=== PATIENT | female | born 1965 | race Caucasian/White ===

== ENCOUNTER → 2016-09-10 | Day surgery (SDC) | payer BC ==
[~2016-09-10] VITALS: Ht 163.8 cm; Wt 61.3 kg
[~2016-09-10] MED LIST: ASPI81CH CHEW; ATOR1TAB18 PO; BUPIVACAINE HCL PF 0.5% 30 ML VIAL ONE; CHLORHEXIDINE GLUCONATE 2 % 1 PACK (2 CLOTHS) TOPICAL PRN; CHLORHEXIDINE GLUCONATE 4% SOLN 120 ML BTL TOPICAL SCH; FAMOTIDINE 20 MG/2 ML VIAL ONE; INSULIN HUMAN REGULAR 1,000 UNITS/10 ML VIAL ONE; INSULIN HUMAN REGULAR 1,000 UNITS/10 ML VIAL SQ PRN; KETOROLAC TROMETHAMINE 30 MG/ML (IVP) VIAL IVP ONE; LACTATED RINGER'S 1000 ML IV PRN; LISI2.5T3 PO; METOPROLOL TARTRATE 25 MG TAB PO PRN; MIDAZOLAM HCL 2 MG/2 ML VIAL ONE; MORPHINE SULFATE 4 MG/ML INJ IV PUSH PRN; NAPR220T95 PO; NOVOLOGSS SQ; ONDANSETRON HCL 4 MG/2 ML VIAL IV PRN; ONDANSETRON HCL 4 MG/2 ML VIAL IV PUSH ONE; POVIDONE IODINE 5% (ANTISEPSIS KIT) 4 APPLICATIONS EACH NARE PRN; PROPOFOL 200 MG/20 ML AMP IV ONE; PROT40TA PO; SODIUM CHLOR 0.9% 250 ML INJ 250 ML ONE; SODIUM CHLORID 0.9% 500 ML IV PRN; SODIUM CHLORIDE 0.9% FLUSH 10 ML FLUSH IV FLUSH PRN; SODIUM CHLORIDE 0.9% FLUSH 10 ML FLUSH IV FLUSH SCH; TRAM-388 PO; VANCOMYCIN 1000 MG/NS 250 ML (for <70 kg) IV SCH; VANCOMYCIN HCL 1000 MG VIAL ONE; ceFAZolin 2 GM PREMIX 50 ML IV SCH; traMADol HCL 50 MG TAB PO PRN
[2016-09-10 08:55] VITALS: BP 115/66; PULSE 79; RESP 20; TEMP 98; O2SAT 94
--- NOTE | 2016-09-10 10:30 | EKG ---
Date Performed: 09/10/2016 Time Performed: 07:52:58 PTAGE: 51 years EKG: Sinus rhythm LOW QRS VOLTAGE IN PRECORDIAL LEADS BORDERLINE ECG NO PREVIOUS TRACING DOCTOR: Saeid Mancini Interpretating Date/Time 09/10/2016 10:29:06
--- NOTE | 2016-09-10 11:48 | PD.OP ---
cc: Chucho Carranza Jr., MD Operative Report Date of Surgery: Sep 10, 2016 Preoperative Diagnosis: Right long trigger finger Postoperative Diagnosis: Same Procedure: A1 hebert release of right long trigger finger Anesthesia: LMA Surgeon: Chucho Carranza Windows Software Developer(s): Staff Resident Surgeon: None Operation and Findings: Patient was seen and evaluated preoperatively and found to have a debilitating and painful trigger finger at the right long finger, that has so far failed nonoperative treatment. Informed consent was obtained after detailed discussion of risk and benefits including bleeding, infection, injury to arteries, nerves, and blood vessels, weakness and numbness of hand, and tendon rupture. Informed consent was obtained. Patient received IV antibiotics prior to incision. Timeout procedure was performed. Operative extremity was prepped with alcohol followed by Hibiclens and draped usual sterile fashion. Local anesthesia was performed with a quarter percent Marcaine without epi. A 1 cm long vertical incision was made with the proximal palmar crease and carried by sharp dissection through the subcutaneous tissue. Blunt dissection was used to expose the flexor tendon and the proximal edge of the A1 hebert. Using a #11 knife blade, the A1 hebert was incised and released from its proximal to distal extent. The finger was then put through a full range of motion with no triggering and I could see the hyperthrophic bump on the flexor tendon appear and disappear, and there was no further triggering. The wound was irrigated copiously with normal saline and the incision closed with 4 interrupted simple sutures of 2-0 nylon. A sterile pressure dressing was placed over the hand, and the tourniquet was deflated. The patient was awakened and returned to recovery in apparently good condition. Tourniquet time was 9 minutes. POSTP-OP PLAN OF ACTIVITY Antibiotics: none Antiocoagulation: none Weight bearing status: WBAT Dressing: Do not remove until outpatient clinic visit Dispo: expected discharge TODAY home from PACU Chucho Carranza Jr., MD Sep 10, 2016 11:48
[2016-09-10 13:05] VITALS: BP 106/56; PULSE 65; RESP 16; TEMP 97.8; O2SAT 99
== END | disposition home or self-care (01) ==
LOC: HSDC 07:15
PROVIDERS: ATTEND Orthopaedic Surgery
DX: M65.331 Trigger finger, right middle finger (principal); I10 Essential (primary) hypertension; E11.9 Type 2 diabetes mellitus without complications
CPT/HCPCS: 01810; 26055; 82948; 93005; J1815; J1885; J2250; J2405; J3370; J7050

== ENCOUNTER 2017-06-24 04:27 | Inpatient (IN) | payer BC ==
[2017-06-24] VITALS (9 sets, daily range): BP systolic 88–104; BP diastolic 49–56; PULSE 91–127; RESP 19–34; TEMP 97.7–98.9; O2SAT 92–100
[~2017-06-24] VITALS: Ht 165.1 cm; Wt 69.3 kg
[~2017-06-24 04:27] MED LIST changes: +ASPI-516 CHEW; -ASPI81CH CHEW; -ATOR1TAB18 PO; +ATOR80TA45 PO; -BUPIVACAINE HCL PF 0.5% 30 ML VIAL ONE; -CHLORHEXIDINE GLUCONATE 2 % 1 PACK (2 CLOTHS) TOPICAL PRN; -CHLORHEXIDINE GLUCONATE 4% SOLN 120 ML BTL TOPICAL SCH; -FAMOTIDINE 20 MG/2 ML VIAL ONE; -INSULIN HUMAN REGULAR 1,000 UNITS/10 ML VIAL ONE; -INSULIN HUMAN REGULAR 1,000 UNITS/10 ML VIAL SQ PRN; -KETOROLAC TROMETHAMINE 30 MG/ML (IVP) VIAL IVP ONE; -LACTATED RINGER'S 1000 ML IV PRN; -METOPROLOL TARTRATE 25 MG TAB PO PRN; -MIDAZOLAM HCL 2 MG/2 ML VIAL ONE; -MORPHINE SULFATE 4 MG/ML INJ IV PUSH PRN; -ONDANSETRON HCL 4 MG/2 ML VIAL IV PRN; -ONDANSETRON HCL 4 MG/2 ML VIAL IV PUSH ONE; -POVIDONE IODINE 5% (ANTISEPSIS KIT) 4 APPLICATIONS EACH NARE PRN; -PROPOFOL 200 MG/20 ML AMP IV ONE; -SODIUM CHLOR 0.9% 250 ML INJ 250 ML ONE; -SODIUM CHLORID 0.9% 500 ML IV PRN; -SODIUM CHLORIDE 0.9% FLUSH 10 ML FLUSH IV FLUSH PRN; -SODIUM CHLORIDE 0.9% FLUSH 10 ML FLUSH IV FLUSH SCH; -VANCOMYCIN 1000 MG/NS 250 ML (for <70 kg) IV SCH; -VANCOMYCIN HCL 1000 MG VIAL ONE; -ceFAZolin 2 GM PREMIX 50 ML IV SCH; -traMADol HCL 50 MG TAB PO PRN
[2017-06-24] MEDS ORDERED: SODIUM CHLOR 0.9% 1000 ML INJ 1,000 ML IV ONE ×2 (04:36→05:06)
--- NOTE | 2017-06-24 04:40 | PD ---
HPI Chief Complaint: Diabetic Time Seen by Provider: 04:36 Travel History International Travel<30 days: No Contact w/Intl Traveler<30days: No Traveled to known affect area: No History of Present Illness HPI 52 year old female with insulin-dependent diabetes presents to the emergency department from home by EMS transport for complaint of uncontrolled blood sugar nausea vomiting abdominal pain and identified to have his normal respirations. Patient was initiated IV fluids by EMS. Accu-Chek was read as high this was also noted upon arrival to the ED. Patient continues to complain of nausea without vomiting here. After persistent vomiting developed abdominal pain. No fevers no chills but has had respiratory illness and is worried that she has the flu. There is been no hematemesis coffee-ground emesis and no melena or hematochezia. No reported fever. No known dietary indiscretion well water ingestion or foreign travel. Patient is wearing insulin pump. PFSH Past Medical History Narrative Medical Diabetes hypertension; nursing notes reviewed Diabetes: Yes Social History Tobacco Use: No Allergies-Medications (Allergen,Severity, Reaction): Coded Allergies: penicillin G (Verified Allergy, Unknown, "It feels painful.", 06/24/17) Reported Meds & Prescriptions Reported Meds & Active Scripts Active Tramadol-Acetaminophen 37.5-325 mg Tab 1 Tab PO Q4H PRN Reported Novolog Inj (Insulin Aspart) 100 Unit/Ml Inj 0.5 Units SQ Q1HR Aspirin 81 Mg Chew 81 Mg CHEW DAILY Lisinopril 2.5 Mg Tab 2.5 Mg PO DAILY Protonix (Pantoprazole Sodium) 40 Mg Tab 40 Mg PO DAILY Atorvastatin (Atorvastatin Calcium) 80 Mg Tab 80 Mg PO HS Review of Systems Except as stated in HPI: all other systems reviewed are Neg Physical Exam Narrative GENERAL: Well-developed ill-appearing dehydrated appearing female with Kussmaul respirations. SKIN: Warm and dry. HEAD: Normocephalic. EYES: No scleral icterus. No injection or drainage. NECK: Supple, trachea midline. No JVD or lymphadenopathy. CARDIOVASCULAR: Regular rate and rhythm without murmurs, gallops, or rubs. RESPIRATORY: Breath sounds equal bilaterally. No accessory muscle use. GASTROINTESTINAL: Abdomen soft, non-tender, nondistended. MUSCULOSKELETAL: No cyanosis, or edema. BACK: Nontender without obvious deformity. No CVA tenderness. Data Data Last Documented VS Vital Signs Date Time Temp Pulse Resp B/P (MAP) Pulse Ox O2 Delivery O2 Flow Rate FiO2 06/24/17 06:05 107 32 97/56 (70) 99 Room Air 06/24/17 04:59 21 06/24/17 04:32 97.8 Orders Orders Electrocardiogram (06/24/17 04:36) Complete Blood Count With Diff (06/24/17 04:36) Comprehensive Metabolic Panel (06/24/17 04:36) Magnesium (Mg) (06/24/17 04:36) Beta Hydroxybutyrate (Acetone) (06/24/17 04:36) Lactic Acid (06/24/17 04:36) Urinalysis - C+S If Indicated (06/24/17 04:36) Blood Culture (06/24/17 04:36) Chest, Single Ap (06/24/17 04:36) Blood Gas Venous (Vbg) (06/24/17 04:36) Blood Glucose (06/24/17 04:36) Blood Glucose (06/24/17 05:36) Ecg Monitoring (06/24/17 04:36) Iv Access Insert/Monitor (06/24/17 04:36) Oximetry (06/24/17 04:36) NPO (06/24/17 04:36) Sodium Chlor 0.9% 1000 Ml Inj (Ns 1000 M (06/24/17 04:36) Sodium Chlor 0.9% 1000 Ml Inj (Ns 1000 M (06/24/17 05:06) Sodium Chloride 0.9% Flush (Ns Flush) (06/24/17 04:45) Troponin I (06/24/17 04:36) Lipase (06/24/17 04:36) Insulin Human Regular Inj (Novolin R Inj (06/24/17 04:45) Utility Porter / Telemetry CHAPARRO.Q8H (06/24/17 05:14) ^ Insert Iv (06/24/17 05:14) Diet Npo (06/24/17 Breakfast) Sodium Chlor 0.9% 1000 Ml Inj (Ns 1000 M (06/24/17 05:14) Dext 5%-Nacl 0.9% 1000 Ml Inj (D5w-Ns 10 (06/24/17 05:14) Insulin Regular (Iv Infusion) (Novolin R (06/24/17 05:15) Potassium Chlor 40 Meq Premix (Kcl 40 Me (06/24/17 05:15) Potassium Chlor 40 Meq Premix (Kcl 40 Me (06/24/17 05:15) Potassium Chlor 20 Meq Premix (Kcl 20 Me (06/24/17 05:15) Potassium Chlor 20 Meq Premix (Kcl 20 Me (06/24/17 05:15) Potassium Chlor 20 Meq Premix (Kcl 20 Me (06/24/17 05:15) Potassium Chlor 20 Meq Premix (Kcl 20 Me (06/24/17 05:15) Potassium Chlor 20 Meq Premix (Kcl 20 Me (06/24/17 05:15) Potassium Chlor 20 Meq Premix (Kcl 20 Me (06/24/17 05:15) Sodium Bicarbonate 8.4% Inj (Sodium Bica (06/24/17 05:15) Sodium Bicarbonate 8.4% Inj (Sodium Bica (06/24/17 05:15) Sodium Phosphate Inj (Sodium Phosphate I (06/24/17 05:15) Hemoglobin (Hgb) A1c (06/24/17 05:14) Basic Metabolic Panel (Bmp) (06/24/17 10:14) Basic Metabolic Panel (Bmp) (06/24/17 16:14) Basic Metabolic Panel (Bmp) (06/24/17 22:14) Basic Metabolic Panel (Bmp) (06/25/17 04:14) Magnesium (Mg) (06/24/17 10:14) Magnesium (Mg) (06/24/17 16:14) Magnesium (Mg) (06/24/17 22:14) Magnesium (Mg) (06/25/17 04:14) Phosphorus (Po4) (06/24/17 10:14) Phosphorus (Po4) (06/24/17 16:14) Phosphorus (Po4) (06/24/17 22:14) Phosphorus (Po4) (06/25/17 04:14) Beta Hydroxybutyrate (Acetone) (06/24/17 16:14) Beta Hydroxybutyrate (Acetone) (06/25/17 04:14) Ondansetron Inj (Zofran Inj) (06/24/17 05:30) Ondansetron Inj (Zofran Inj) (06/24/17 05:45) Admit Order (Ed Use Only) (06/24/17 ) Utility Porter / Telemetry CHAPARRO.Q8H (06/24/17 06:11) Activity Bed Rest (06/24/17 06:11) Notify Dr: Other (06/24/17 06:11) Influenzae A/B Antigen (06/24/17 06:13) Labs Laboratory Tests Test 06/24/17 04:43 06/24/17 04:50 Blood Gas Puncture Site IV Blood Gas Patient Temperature 98.6 Venous Blood pH 7.12 Venous Blood Partial Pressure CO2 18 mmHg Venous Blood Partial Pressure O2 53 mmHg Venous Blood HCO3 6 mmol/L Venous Blood Oxygen Saturation 76 % Venous Blood Oxygen Content 13.3 Vol % Venous Blood Base Excess -22.0 mmol/L Blood Gas Inspired Oxygen 21 % White Blood Count 19.0 TH/MM3 Red Blood Count 3.76 MIL/MM3 Hemoglobin 12.8 GM/DL Hematocrit 41.3 % Mean Corpuscular Volume 109.9 FL Mean Corpuscular Hemoglobin 34.0 PG Mean Corpuscular Hemoglobin Concent 31.0 % Red Cell Distribution Width 14.5 % Platelet Count 194 TH/MM3 Mean Platelet Volume 10.7 FL Neutrophils (%) (Auto) 85.2 % Lymphocytes (%) (Auto) 5.1 % Monocytes (%) (Auto) 9.7 % Eosinophils (%) (Auto) 0.0 % Basophils (%) (Auto) 0.0 % Neutrophils # (Auto) 16.2 TH/MM3 Lymphocytes # (Auto) 1.0 TH/MM3 Monocytes # (Auto) 1.8 TH/MM3 Eosinophils # (Auto) 0.0 TH/MM3 Basophils # (Auto) 0.0 TH/MM3 CBC Comment DIFF FINAL Differential Comment Blood Urea Nitrogen 46 MG/DL Creatinine 2.43 MG/DL Random Glucose 1018 MG/DL Total Protein 6.5 GM/DL Albumin 3.6 GM/DL Calcium Level 8.4 MG/DL Magnesium Level 2.2 MG/DL Alkaline Phosphatase 104 U/L Aspartate Amino Transf (AST/SGOT) 29 U/L Alanine Aminotransferase (ALT/SGPT) 36 U/L Total Bilirubin 0.5 MG/DL Sodium Level 129 MEQ/L Potassium Level 5.1 MEQ/L Chloride Level 87 MEQ/L Carbon Dioxide Level 6.9 MEQ/L Anion Gap 35 MEQ/L Estimat Glomerular Filtration Rate 21 ML/MIN Lactic Acid Level 8.0 mmol/L Troponin I 0.51 NG/ML Lipase 102 U/L B-Hydroxybutyrate 13.00 MMOL/L MDM Medical Decision Making Medical Screen Exam Complete: Yes Emergency Medical Condition: Yes Medical Record Reviewed: Yes Interpretation(s) Vital Signs Date Time Temp Pulse Resp B/P (MAP) Pulse Ox O2 Delivery O2 Flow Rate FiO2 06/24/17 06:05 107 32 97/56 (70) 99 Room Air 06/24/17 05:00 98 32 96/49 (65) 98 Room Air 06/24/17 04:59 99 21 06/24/17 04:32 97.8 101 34 93/56 (68) 100 Last Impressions Chest X-Ray 06/24/17 0436 Signed Impressions: Service Date/Time: Saturday, June 24, 2017 04:54 - CONCLUSION: No acute disease. Christiano Crespo MD VBG: Room air: PH 7.12 PCO2 18 bicarbonate 5.7 base excess -22 EKG: sinus rhythm QS septally age-indeterminate Influenza a/b ag: negative CBC & BMP Diagram 06/24/17 04:50 Total Protein 6.5, Albumin 3.6, Calcium Level 8.4 L, Magnesium Level 2.2, Alkaline Phosphatase 104, Aspartate Amino Transf (AST/SGOT) 29, Alanine Aminotransferase (ALT/SGPT) 36, Total Bilirubin 0.5 Differential Diagnosis DKA, hyperglycemia, electrolyte disturbance, dehydration Narrative Course Patient placed on navy senior officer IV access obtained 2 L normal saline hung for hydration patient given regular insulin 8 units IV; venous blood gas ordered Venous plexus pH is 7.12 patient's in DKA protocols initiated Critical Care Narrative Aggregate critical care time was 30 minutes. Time to perform other separately billable procedures was not included in the critical care time. My time did not include minutes spent treating any other patients simultaneously or on activities that did not directly contribute to the patient's treatment. The services I provided to this patient were to treat and/or prevent clinically significant deterioration that could result in: metabolic encephalopathy, septic shock, arrhythmia, I provided critical care services requiring my management, as noted below: Chart data review, documentation time, medication orders and management, vital sign assessments/reviewing monitor data, ordering and reviewing lab tests, ordering and interpreting/reviewing x-rays and diagnostic studies, care of the patient and discussion of the patient with the admitting physicians. Physician Communication Physician Communication all placed to intensiviat Diagnosis Primary Impression: DKA (diabetic ketoacidoses) Qualified Codes: E10.10 - Type 1 diabetes mellitus with ketoacidosis without coma Additional Impression: Elevated troponin I level Admitting Information Admitting Physician Requests: Admit Estefany Smith MD Jun 24, 2017 04:40
[2017-06-24] MEDS ORDERED: INSULIN HUMAN REGULAR 1,000 UNITS/10 ML VIAL IV PUSH ONE (04:45)
[2017-06-24] MEDS ORDERED: SODIUM CHLORIDE 0.9% FLUSH 10 ML FLUSH IVF PRN (04:45)
[2017-06-24 04:59] LABS: AUTOMATED NEUTROPHIL # 16.2 TH/MM3 (1.8-7.7); HEMATOCRIT 41.3 % (35.0-46.0); HEMOGLOBIN 12.8 GM/DL (11.6-15.3); LYMPH % 5.1 % (9.0-44.0); MEAN CELL VOLUME 109.9 FL (80.0-100.0); MEAN PLATELET VOLUME 10.7 FL (7.0-11.0); MONO % 9.7 % (0.0-8.0); MONOCYTE # 1.8 TH/MM3 (0-0.9); NEUT % 85.2 % (16.0-70.0); PLATELET COUNT 194 TH/MM3 (150-450); RED BLOOD COUNT 3.76 MIL/MM3 (4.00-5.30); RED CELL DISTRIBUTION WIDTH 14.5 % (11.6-17.2)
[2017-06-24] MEDS ORDERED: INSULIN REGULAR (IV INFUSION) 100 UNITS in SODIUM CHLORIDE 0.9% INJ 99 ML IV PRN (05:15)
[2017-06-24] MEDS ORDERED: SODIUM BICARBONATE 8.4% SOLN 50 MEQ/50 ML VIAL IV PUSH PRN ×2 (05:15)
[2017-06-24] MEDS ORDERED: POTASSIUM CHLOR 40 MEQ PREMIX 100 ML IV PRN ×4 (05:15→18:15)
[2017-06-24] MEDS ORDERED: SODIUM PHOSPHATE INJ 15 MMOL in SODIUM CHLORIDE 0.9% INJ 100 ML IV PRN (05:15)
[2017-06-24] MEDS ORDERED: POTASSIUM CHLOR 20 MEQ PREMIX 100 ML IV PRN ×8 (05:15→18:15)
[2017-06-24 05:16] LABS: ALBUMIN 3.6 GM/DL (3.4-5.0); AST (GOT) 29 U/L (15-37); BICARBONATE 6.9 MEQ/L (21.0-32.0); BLOOD UREA NITROGEN 46 MG/DL (7-18); CALCIUM 8.4 MG/DL (8.5-10.1); CHLORIDE 87 MEQ/L (98-107); CREATININE 2.43 MG/DL (0.50-1.00); GLOMERULAR FILTRATION RATE 21 ML/MIN (>89); LIPASE 102 U/L (73-393); MAGNESIUM 2.2 MG/DL (1.5-2.5); SODIUM (NA) 129 MEQ/L (136-145)
[2017-06-24] MEDS ORDERED: ONDANSETRON HCL 4 MG/2 ML VIAL IV PUSH ONE ×2 (05:30→05:45)
--- NOTE | 2017-06-24 05:31 | RADRPT ---
EXAM DATE/TIME: 06/24/2017 04:54 [facility] COMPARISON: No previous studies available for comparison. INDICATIONS : Short of breath. MEDICAL HISTORY : None. SURGICAL HISTORY : None. ENCOUNTER: Initial ACUITY: 1 day PAIN SCORE: 0/10 LOCATION: Bilateral chest FINDINGS: A single view of the chest demonstrates the lungs to be symmetrically aerated without evidence of mas s, infiltrate or effusion. The cardiomediastinal contours are unremarkable. Osseous structures are intact. CONCLUSION: No acute disease. Christiano Crespo MD on June 24, 2017 at 5:29 Board Certified Radiologist. This report was verified electronically.
[2017-06-24 05:32] LABS: ALKALINE PHOSPHATASE 104 U/L (45-117); ALT (GPT) 36 U/L (10-53); GLUCOSE,RANDOM 1018 MG/DL (74-106); TOTAL BILIRUBIN ADULT 0.5 MG/DL (0.2-1.0); TOTAL PROTEIN 6.5 GM/DL (6.4-8.2); TROPONIN I 0.51 NG/ML (0.02-0.05)
[2017-06-24] MEDS: SODIUM CHLOR 0.9% 1000 ML INJ 1,000 ML IV SCH ×4 (06:00→16:10)
[2017-06-24] MEDS ORDERED: BISACODYL 10 MG SUPP RECTAL PRN (06:30)
[2017-06-24] MEDS ORDERED: CHLORHEXIDINE GLUCONATE 2 % 1 PACK (2 CLOTHS) TOP PRN (06:30)
[2017-06-24] MEDS ORDERED: ASPIRIN 325 MG TAB PO ONE (06:30)
[2017-06-24] MEDS ORDERED: MISCELLANEOUS NURSING INFORMATION XX SCH (06:30)
[2017-06-24] MEDS ORDERED: SENNOSIDES 8.6 MG TAB PO PRN (06:30)
[2017-06-24] MEDS ORDERED: MAGNESIUM HYDROXIDE SUSP 30 ML CUP PO PRN (06:30)
[2017-06-24] MEDS ORDERED: LACTULOSE SYRUP 20 GM/30 ML CUP PO PRN (06:30)
[2017-06-24] MEDS: HEPARIN SODIUM - SQ 10,000 UNITS/ML VIAL SQ SCH ×3 (06:49→20:13)
[2017-06-24] MEDS ORDERED: HYDROmorphone HCL PF 2 MG/ML VIAL IV PUSH PRN (07:15)
--- NOTE | 2017-06-24 07:30 | HHI.HP ---
HPI Service Critical Care Medicine Primary Care Physician No Primary Care Physician Admission Diagnosis gerry; elevated troponin I; acute kidney injury Diagnosis: Chief Complaint: fatigue Travel History International Travel<30 Days: No Contact w/Intl Traveler <30 Da: No Traveled to Known Affected Are: No History of Present Illness This is a 52-year-old female with a history of type 1 diabetes who has an insulin pump at home. She presents for worsening fatigue over the past one week which is associated with nausea, vomiting, and nonbloody diarrhea. She states she has had these GI symptoms for at least 4-5 days and it just continually become worse. She also states that she thinks her insulin pump is not working very well because her blood sugars continue to rise despite her insulin pump. In the emergency department, she was found to have a severely elevated lactate at 8, blood glucose greater than thousand, positive blood and urine ketones. She denies chest pain, shortness breath, palpitations, shoulder pain, jaw pain. Her troponin is very slightly elevated. She does not have a history of coronary disease. The remainder of her review of systems is negative other than listed above. Review of Systems Constitutional: COMPLAINS OF: Fatigue, DENIES: Fever, Weight gain, Weight loss , Chills, Dizziness, Change in appetite, Night Sweats Eyes: DENIES: Blurred vision Respiratory: DENIES: Apneas, Cough, Wheezing, Hemoptysis, Sputum production, Shortness of breath Cardiovascular: DENIES: Chest pain, Palpitations, Syncope, Dyspnea on Exertion , PND, Lower Extremity Edema, Orthopnea, Claudication Gastrointestinal: COMPLAINS OF: Abdominal pain, Diarrhea, Nausea, Vomiting, DENIES: Black stools, Bloody stools, Constipation Genitourinary: DENIES: Abnormal vaginal bleeding Musculoskeletal: DENIES: Joint pain Neurologic: DENIES: Headache Psychiatric: DENIES: Anxiety, Confusion Past Family Social History Allergies: Coded Allergies: penicillin G (Verified Allergy, Unknown, "It feels painful.", 06/24/17) Past Medical History Type 1 diabetes Hypertension Past Surgical History none Reported Medications Tramadol-Acetaminophen 37.5-325 mg Tab 1 Tab PO Q4H PRN Novolog Inj (Insulin Aspart) 100 Unit/Ml Inj 0.5 Units SQ Q1HR Aspirin 81 Mg Chew 81 Mg CHEW DAILY Lisinopril 2.5 Mg Tab 2.5 Mg PO DAILY Protonix (Pantoprazole Sodium) 40 Mg Tab 40 Mg PO DAILY Atorvastatin (Atorvastatin Calcium) 80 Mg Tab 80 Mg PO HS Active Ordered Medications See MAR Family History Reviewed with the patient and found to be noncontributory to her acute illness Social History nonsmoker Physical Exam Vital Signs Vital Signs Date Time Temp Pulse Resp B/P (MAP) Pulse Ox O2 Delivery O2 Flow Rate FiO2 06/24/17 06:05 107 32 97/56 (70) 99 Room Air 06/24/17 05:00 98 32 96/49 (65) 98 Room Air 06/24/17 04:59 99 21 06/24/17 04:32 97.8 101 34 93/56 (68) 100 Physical Exam GENERAL: Middle-aged female, lying in bed, in acute distress HEENT: Normocephalic. Atraumatic. Pupils equal, round, reactive, conjugate. Mucous membranes are moist NECK: Trachea is midline. There is no JVD. CHEST: Tachypneic. Room air. Labored. Using accessory muscles. CARDIOVASCULAR: Tachycardic rate, regular rhythm. Sinus tachycardia by telemetry ABDOMEN: Soft, nontender, nondistended. No guarding. MUSCULOSKELETAL: Pulses 2+. No peripheral edema. NEUROLOGICAL: RASS -1. Nonfocal. Follows commands. Laboratory Laboratory Tests Test 06/24/17 04:43 06/24/17 04:50 06/24/17 06:42 Blood Gas Puncture Site IV Blood Gas Patient Temperature 98.6 Venous Blood pH 7.12 Venous Blood Partial Pressure CO2 18 Venous Blood Partial Pressure O2 53 Venous Blood HCO3 6 Venous Blood Oxygen Saturation 76 Venous Blood Oxygen Content 13.3 Venous Blood Base Excess -22.0 Blood Gas Inspired Oxygen 21 White Blood Count 19.0 Red Blood Count 3.76 Hemoglobin 12.8 Hematocrit 41.3 Mean Corpuscular Volume 109.9 Mean Corpuscular Hemoglobin 34.0 Mean Corpuscular Hemoglobin Concent 31.0 Red Cell Distribution Width 14.5 Platelet Count 194 Mean Platelet Volume 10.7 Neutrophils (%) (Auto) 85.2 Lymphocytes (%) (Auto) 5.1 Monocytes (%) (Auto) 9.7 Eosinophils (%) (Auto) 0.0 Basophils (%) (Auto) 0.0 Neutrophils # (Auto) 16.2 Lymphocytes # (Auto) 1.0 Monocytes # (Auto) 1.8 Eosinophils # (Auto) 0.0 Basophils # (Auto) 0.0 CBC Comment DIFF FINAL Differential Comment Blood Urea Nitrogen 46 Creatinine 2.43 Random Glucose 1018 Total Protein 6.5 Albumin 3.6 Calcium Level 8.4 Magnesium Level 2.2 Alkaline Phosphatase 104 Aspartate Amino Transf (AST/SGOT) 29 Alanine Aminotransferase (ALT/SGPT) 36 Total Bilirubin 0.5 Sodium Level 129 Potassium Level 5.1 Chloride Level 87 Carbon Dioxide Level 6.9 Anion Gap 35 Estimat Glomerular Filtration Rate 21 Lactic Acid Level 8.0 Troponin I 0.51 Lipase 102 B-Hydroxybutyrate 13.00 Date/Time Source Procedure Growth Status 06/24/17 05:15 Blood Peripheral Aerobic Blood Culture Pending Received 06/24/17 05:15 Blood Peripheral Anaerobic Blood Culture Pending Received 06/24/17 06:16 Nasal Washing Influenza Types A,B Antigen (JOVI) - Final NEGATIVE FOR FLU A AND B ANTIGEN.... Complete Result Diagram: 06/24/17 0450 06/24/17 0450 Imaging Last Impressions Chest X-Ray 06/24/17 0436 Signed Impressions: Service Date/Time: Saturday, June 24, 2017 04:54 - CONCLUSION: No acute disease. Christiano Crespo MD Septic Shock Reassessment Septic shock perfusion: reassessment completed Caprini VTE Risk Assessment Caprini VTE Risk Assessment: Mod/High Risk (score >= 2) Caprini Risk Assessment Model Point Value = 1 Point Value = 2 Point Value = 3 Point Value = 5 Age 41-60 Minor surgery BMI > 25 kg/m2 Swollen legs Varicose veins or History of unexplained or recurrent spontaneous Oral contraceptives or hormone replacement Sepsis (< 1 month) Serious lung disease, including pneumonia (< 1 month) Abnormal pulmonary function Acute myocardial infarction Congestive heart failure (< 1 month) History of inflammatory bowel disease Medical patient at bed rest Age 61-74 Arthroscopic surgery Major open surgery (> 45 min) Laparoscopic surgery (> 45 min) Malignancy Confined to bed (> 72 hours) Immobilizing plaster cast Central venous access Age >= 75 History of VTE Family history of VTE Factor V Leiden Prothrombin [id number] Lupus anticoagulant Anticardiolipin antibodies Elevated serum homocysteine Heparin-induced thrombocytopenia Other congenital or acquired thrombophilia Stroke (< 1 month) Elective arthroplasty Hip, pelvis, or leg fracture Acute spinal cord injury (< 1 month) Prophylaxis Regimen Total Risk Factor Score Risk Level Prophylaxis Regimen 0-1 Low Early ambulation 2 Moderate Order ONE of the following: *Sequential Compression Device (SCD) *Heparin 5000 units SQ BID 3-4 Higher Order ONE of the following medications: *Heparin 5000 units SQ TID *Enoxaparin/Lovenox 40 mg SQ daily (WT < 150 kg, CrCl > 30 mL/min) *Enoxaparin/Lovenox 30 mg SQ daily (WT < 150 kg, CrCl > 10-29 mL/min) *Enoxaparin/Lovenox 30 mg SQ BID (WT < 150 kg, CrCl > 30 mL/min) AND/OR *Sequential Compression Device (SCD) 5 or more Highest Order ONE of the following medications: *Heparin 5000 units SQ TID (Preferred with Epidurals) *Enoxaparin/Lovenox 40 mg SQ daily (WT < 150 kg, CrCl > 30 mL/min) *Enoxaparin/Lovenox 30 mg SQ daily (WT < 150 kg, CrCl > 10-29 mL/min) *Enoxaparin/Lovenox 30 mg SQ BID (WT < 150 kg, CrCl > 30 mL/min) AND *Sequential Compression Device (SCD) Assessment and Plan Assessment and Plan Assessment: 52yF with type 1 DM with severe diabetic ketoacidosis, most likely secondary to viral gastroenteritis by clinical history. Illness is complicated by severe and life-threatening acidosis, lactate, and elevated troponin. Given age and comorbidities, high concern for comorbid coronary artery disease, although without overt symptoms of ACS, unlikely to be Type 1 NSTEMI. will trend cardiac enzymes. continue DKA protocol. will trend lactates to ensure downtrending. If she does not improve on pathway, may need additional imaging to rule out other causes of her ongoing acidosis. Remains very critically ill with multi-organ failure and lifie-threatening acidosis. Plan by systems: Neurologic: Abdominal pain - dilaudid 0.5mg iv q4h prn Respiratory: - aggressive pulmonary toilet - oob - pt consult Cardiovascular: Elevated Troponin, Type II NSTEMI secondary to demand ischemia - trend troponins - EKG without st-t-wave changes - continue telemetry - will need outpatient cardiology follow-up and evaluation for possible CAD. - no history to suggest ACS. Renal: Acute Kidney injury - secondary to severe dehydration and DKA - daily bmp -- Strict I/Os FEN/GI: Severe Acute Intravascular Volume Overload Severe Life-threatening Anion-Gap Metabolic Acidosis Lactic Acidosis Ketoacidosis Pseudohyponatremia/Corrected Hypernatremia Free Water Deficit Hyperkalemia Total body Potassium Deficit - DKA protocol - 06/24 corrected sodium: 151 - trend lactates - serial BMP Heme/ID: Viral Gastroenteritis no clinical history to suggest bacterial infection monitor for signs of fever, rising leukocytosis will hold off on abx for now does not meet transfusion triggers at this time daily cbc Endocrine: Diabetic Ketoacidosis -- dka protocol. serial glucoses. will need to add long-acting insulin when gap closes. Prophylaxis: GI Prophylaxis iv pepcid DVT Prophylaxis -- SCDs SQH Lines: piv's Dispo: admit to ICU. remains critically ill. This patient remains critically ill with one or more organ systems which are or may become a threat to life. I have spent in excess of 56 minutes discontinuously in the care and management of this patient. This time is exclusive of procedures, and includes, but is not limited to, evaluation of the patient, review of the medical record, discussions with family, consultants, nursing staff, or respiratory therapy, and documentation in the medical record. Code Status Full Code Baudilio Cardona MD Jun 24, 2017 07:30
[2017-06-24] MEDS ORDERED: FAMOTIDINE 20 MG/2 ML VIAL IV PUSH SCH (09:00)
[2017-06-24] MEDS: DOCUSATE SODIUM 50 MG/SENNA 8.6 MG TAB PO SCH ×2 (09:38→20:12)
[2017-06-24] MEDS: DEXT 5%-NACL 0.9% 1000 ML INJ 1,000 ML IV SCH ×3 (10:14→20:54)
--- NOTE | 2017-06-24 13:36 | EKG ---
Date Performed: 06/24/2017 Time Performed: 04:34:26 PTAGE: 52 years EKG: Sinus rhythm Since previous tracing, no significant change noted ABNORMAL ECG PREVIOUS TRACING : 09/10/16 DOCTOR: Rodrigo Donald Interpretating Date/Time 06/24/2017 13:36:07
[2017-06-24 14:36] LABS: BICARBONATE 21.2 MEQ/L (21.0-32.0); CALCIUM 7.4 MG/DL (8.5-10.1); CREATININE 1.47 MG/DL (0.50-1.00); MAGNESIUM 1.9 MG/DL (1.5-2.5); PHOSPHORUS 1.6 MG/DL (2.5-4.9)
[2017-06-24 15:00] LABS: CALCIUM-PROTEIN CORRECTED 8.2 MG/DL (8.5-10.1); TOTAL PROTEIN 5.6 GM/DL (6.4-8.2)
[2017-06-24] MEDS ORDERED: POTASSIUM PHOSPHATE IV ONE ×2 (16:00→17:45)
[2017-06-24] MEDS ORDERED: SODIUM CHLOR 0.9% IV ONE (16:00)
[2017-06-24] MEDS ORDERED: SODIUM CHLORID 0.9% IV ONE (17:45)
[2017-06-24] MEDS ORDERED: DEXTROSE 50% IN WATER 50 ML VIAL(D50) IV PUSH PRN (18:15)
[2017-06-24] MEDS ORDERED: POTASSIUM CHLORIDE 25 MEQ EFFERVESCENT TAB PO PRN (18:15)
[2017-06-24] MEDS ORDERED: POTASSIUM PHOSPHATE MONOBASIC 500 MG TAB PO/TUBE PRN (18:15)
[2017-06-24] MEDS ORDERED: SODIUM PHOSPHATE INJ 30 MMOL in SODIUM CHLOR 0.9% 250 ML INJ 240 ML IV PRN (18:15)
[2017-06-24] MEDS ORDERED: MAGNESIUM SULFATE INJ 2 GM in SODIUM CHLORIDE 0.9% INJ 96 ML IV PRN (18:15)
[2017-06-24] MEDS ORDERED: POTASSIUM PHOSPHATE MONOBASIC 500 MG TAB PO PRN (18:15)
[2017-06-24] MEDS ORDERED: MAGNESIUM SULFATE INJ 4 GM in SODIUM CHLORIDE 0.9% INJ 92 ML IV PRN (18:15)
[2017-06-24] MEDS ORDERED: MAGNESIUM OXIDE 400 MG TAB PO PRN (18:15)
[2017-06-24] MEDS ORDERED: POTASSIUM PHOSPHATE INJ 30 MMOL in SODIUM CHLOR 0.9% 250 ML INJ 250 ML IV PRN (18:15)
[2017-06-24] MEDS: INSULIN NovoLIN REGULAR SUPPLEMENTAL SCALE SQ SCH (20:12)
[2017-06-24] MEDS ORDERED: BENZOCAINE-MENTHOL (SUGAR FREE) 15 MG-3.6 MG LOZENGE BUCCAL PRN (20:30)
[2017-06-24] MEDS ORDERED: INSULIN DETEMIR 100 UNITS/ML VIAL SQ SCH (21:00)
[2017-06-25] VITALS: BP 105/51; PULSE 94; RESP 20; TEMP 97.9; O2SAT 96
[2017-06-25] MEDS: DEXT 5%-NACL 0.9% 1000 ML INJ 1,000 ML IV SCH ×2 (01:14→06:14)
[2017-06-25 04:00] VITALS: BP 95/55; PULSE 83; RESP 20; TEMP 98.9; O2SAT 95
[2017-06-25] MEDS ORDERED: CHLORHEXIDINE GLUCONATE 2 % 1 PACK (2 CLOTHS) TOP SCH (04:00)
[2017-06-25] MEDS: INSULIN NovoLIN REGULAR SUPPLEMENTAL SCALE SQ SCH ×3 (04:00→07:56)
[2017-06-25] MEDS: HEPARIN SODIUM - SQ 10,000 UNITS/ML VIAL SQ SCH (05:20)
[2017-06-25 06:47] LABS: HEMATOCRIT 32.2 % (35.0-46.0); HEMOGLOBIN 10.9 GM/DL (11.6-15.3); MEAN CELL VOLUME 99.3 FL (80.0-100.0); MEAN CORPUSCULAR HEMOGLOBIN 33.6 PG (27.0-34.0); MEAN CORPUSCULAR HGB CONC 33.9 % (32.0-36.0); PLATELET COUNT 123 TH/MM3 (150-450); RED BLOOD COUNT 3.24 MIL/MM3 (4.00-5.30); RED CELL DISTRIBUTION WIDTH 13.2 % (11.6-17.2); WHITE BLOOD COUNT 12.4 TH/MM3 (4.0-11.0)
[2017-06-25 07:00] VITALS: PULSE 78
[2017-06-25 07:21] LABS: BICARBONATE 21.1 MEQ/L (21.0-32.0); CALCIUM 7.3 MG/DL (8.5-10.1); CREATININE 0.8 MG/DL (0.50-1.00); MAGNESIUM 1.7 MG/DL (1.5-2.5); PHOSPHORUS 1.8 MG/DL (2.5-4.9)
[2017-06-25 07:36] LABS: CALCIUM-PROTEIN CORRECTED 8.6 MG/DL (8.5-10.1); TOTAL PROTEIN 4.8 GM/DL (6.4-8.2)
[2017-06-25] MEDS: DOCUSATE SODIUM 50 MG/SENNA 8.6 MG TAB PO SCH (07:55)
[2017-06-25 07:57] LABS: TROPONIN I 0.63 NG/ML (0.02-0.05)
--- NOTE | 2017-06-25 07:59 | HHI.CCPN ---
Subjective Remarks/Hospital Course This is a 52-year-old female with a history of type 1 diabetes who has an insulin pump at home. She presents for worsening fatigue over the past one week which is associated with nausea, vomiting, and nonbloody diarrhea. She states she has had these GI symptoms for at least 4-5 days and it just continually become worse. She also states that she thinks her insulin pump is not working very well because her blood sugars continue to rise despite her insulin pump. In the emergency department, she was found to have a severely elevated lactate at 8, blood glucose greater than thousand, positive blood and urine ketones. She denies chest pain, shortness breath, palpitations, shoulder pain, jaw pain. Her troponin is very slightly elevated. She does not have a history of coronary disease. The remainder of her review of systems is negative other than listed above. Subjective 06/25: Afebrile. Tolerating diet. No bowel movement. Requesting to go home. No chest pain. Troponin peaked at 0.91. Cardiology to today. Echocardiogram pending Objective Vital Signs Date Time Temp Pulse Resp B/P (MAP) Pulse Ox O2 Delivery O2 Flow Rate FiO2 06/25/17 04:00 98.9 83 20 95/55 (68) 95 06/24/17 19:42 Room Air 06/24/17 04:59 21 Intake and Output 06/25/17 06/25/17 06/26/17 08:00 16:00 00:00 Intake Total 2640 ml Output Total 550 ml Balance 2090 ml Result Diagram: 06/24/17 0450 06/25/17 0538 Other Results Microbiology Date/Time Source Procedure Growth Status 06/24/17 05:15 Blood Peripheral Aerobic Blood Culture Pending Received 06/24/17 05:15 Blood Peripheral Anaerobic Blood Culture Pending Received 06/24/17 06:16 Nasal Washing Influenza Types A,B Antigen (JOVI) - Final NEGATIVE FOR FLU A AND B ANTIGEN.... Complete Imaging Last Impressions Chest X-Ray 06/24/17 0436 Signed Impressions: Service Date/Time: Saturday, June 24, 2017 04:54 - CONCLUSION: No acute disease. Christiano Crespo MD Objective Remarks GENERAL: 52-year-old female resting in bed in no acute distress SKIN: Warm and dry. HEAD: Atraumatic. Normocephalic. EYES: Pupils equal and round. No scleral icterus. No injection or drainage. ENT: No nasal bleeding or discharge. Mucous membranes pink and moist. NECK: Trachea midline. No JVD. CARDIOVASCULAR: Regular rate and rhythm. S1, S2. No S4. Without murmur RESPIRATORY: Clear to auscultation bilaterally without wheezes rales or rhonchi Breath sounds equal bilaterally. GASTROINTESTINAL: Abdomen soft, non-tender, nondistended. Hepatic and splenic margins not palpable. MUSCULOSKELETAL: Extremities without clubbing, cyanosis, or edema. No obvious deformities. NEUROLOGICAL: Awake and alert. No obvious cranial nerve deficits. Motor grossly within normal limits. Five out of 5 muscle strength in the arms and legs. Normal speech. PSYCHIATRIC: Appropriate mood and affect; insight and judgment normal. Urinary Catheter: Yes Assessment to: Remove Vascular Central Line Catheter: No Assessment to: Continue A/P Assessment and Plan Neuro/Psych: Acute toxic metabolic encephalopathy secondary to ketosis resolved History of right hand trigger finger release Chronic Ultram use Acetaminophen 650 mg by mouth every 6 hours. Fever Resume tramadol/acetaminophen 37.5/25 one tablet every 4 hours. As needed Pain 4 through 7 Hydromorphone 0.5 mg IV every 4 hours as needed pain 8 through 10 Respiratory: Tobaccoism Nasal cannula to maintain saturations greater than equal to 92% Incentive spirometry while awake Chest x-ray revealed no acute cardiopulmonary findings Tobacco cessation self education booklet provided Start on guaifenesin 600 mg twice a day for mucolytic Cardiovascular: Elevated Troponin, Type II NSTEMI secondary to demand ischemia Essential hypertension Dyslipidemia - trend troponins. Peak at 0.91. Currently 0.63 - EKG on admission without st-t-wave changes - continue telemetry - Cardiology consult pending. 2-D echocardiogram ordered Resume atorvastatin 80 mg daily for dyslipidemia and lisinopril 2.5 mill grams daily for hypertension and aspirin 81 mg daily/home medications Lipid panel in a.m. Renal/: Acute Kidney injury resolved - secondary to severe dehydration and DKA. Creatinine currently at baseline - daily bmp -- Strict I/Os - Monitor urine output - Discontinue Dominguez catheter FEN/GI: Hypo-magnesium Hypophosphatemia Hypokalemia Gastroesophageal reflux disease 1800 ADA diet Receiving 2 g mag sulfate and 30 mmol potassium phosphorus. Recheck in a.m. Continue pantoprazole 40 mill grams by mouth daily/home medication Docusate sodium/senna 1 tablet twice a day for bowel regimen Heme/ID: Viral Gastroenteritis? Macrocytosis Leukocytosis no clinical history to suggest bacterial infection Monitor for signs and symptoms of infection does not meet transfusion triggers at this time Recheck CBC in a.m. Pertinent cultures Blood cultures 2 - 06/24 - no growth Influenza negative Endocrine: IDDM Diabetic Ketoacidosis -- dka protocol has been discontinued. - Started on insulin detemir 30 units at night. 20 units sliding scale insulin since transition overnight - We'll start on Novulog meeting protocol Accu-Cheks before meals/at bedtime and O300 - Patient to resume insulin pump once she returns home Hemoglobin A1c pending Prophylaxis: GI Prophylaxis - pantoprazole 40 mg daily DVT Prophylaxis - SCD/heparin subcutaneous Lines: Peripheral IV. Central line if indicated Level II followup. Patient is stable from a critical care medicine standpoint. Transfer to floor. Hospitalist to assume care in a.m. 06/26 Logan Samuels MD Jun 25, 2017 07:59
[2017-06-25 08:00] VITALS: BP 127/61; PULSE 78; RESP 19; TEMP 98.7; O2SAT 98
[2017-06-25] MEDS ORDERED: MAGNESIUM SULFATE 1 GM PREMIX 100 ML IV SCH (08:00)
[2017-06-25] MEDS ORDERED: POTASSIUM PHOSPHATE INJ 30 MMOL in SODIUM CHLOR 0.9% 250 ML INJ 250 ML IV ONE (08:00)
[2017-06-25] MEDS ORDERED: GLUCAGON 1 MG/ML VIAL OTHER PRN (08:15)
[2017-06-25] MEDS ORDERED: traMADol/ACETAMINOPHEN 37.5/325 1 TAB PO PRN (08:15)
[2017-06-25] MEDS ORDERED: DEXTROSE 50% IN WATER 50 ML VIAL(D50) IV PUSH PRN (08:15)
[2017-06-25] MEDS ORDERED: ACETAMINOPHEN 325 MG TAB PO PRN (08:30)
[2017-06-25] MEDS ORDERED: PILL SPLITTER OTHER PRN (08:30)
[2017-06-25] MEDS ORDERED: ASPIRIN 81 MG CHEW TAB CHEW SCH ×3 (09:00)
[2017-06-25] MEDS ORDERED: guaiFENesin E.R. 600 MG TAB PO SCH (09:00)
[2017-06-25] MEDS ORDERED: LISINOPRIL 5 MG TAB PO SCH (09:00)
[2017-06-25] MEDS ORDERED: PANTOPRAZOLE SOD 40 MG DELAYED RELEASE TAB PO SCH (09:00)
[2017-06-25] MEDS ORDERED: REGADENOSON INJ 0.4 MG/5 ML SYR ONE (09:56)
[2017-06-25] MEDS ORDERED: INFLUENZA VIRUS VACCINE (QUADRIVALENT) 0.5 ML SYR IM ONE (10:00)
--- NOTE | 2017-06-25 11:07 | RADRPT ---
EXAM DATE/TIME: 06/25/2017 09:24 [facility] COMPARISON: No previous studies available for comparison. INDICATIONS : Nausea. Coronary artery disease. DOSE: 27.2 mCi Tc99m Myoview at stress. 8.7 mCi Tc99m Myoview at rest. 0.4 mg Lexiscan STRESS SYMPTOMS: Lightheaded. EJECTION FRACTION: 69% MEDICAL HISTORY : Hypercholesterolemia. Hypertension. Gastroesophageal reflux disease. SURGICAL HISTORY : None. ENCOUNTER: Initial ACUITY: 1 day PAIN SCALE: 0/10 LOCATION: chest TECHNIQUE: The patient underwent pharmacologic stress with infusion of prescribed dose. Continuous ECG tracing was monitored during stress. Gated SPECT imaging was performed after stress and conventional SPECT i maging was performed at rest. The examination was performed on a SPECT/CT scanner, both attenuation and non-corrected datasets were reviewed. FINDINGS: DISTRIBUTION: The maximum perfused segment at stress is in the anterolateral wall. PERFUSION STUDY: The pattern of perfusion at stress is within normal limits. GATED STUDY: There is intact wall motion and thickening without hypokinetic or dyskinetic segments. CONCLUSION: Normal examination. RISK CATEGORY: Low (<1% Annual Mortality Rate) Christiano Barraza MD on June 25, 2017 at 11:00 Board Certified Radiologist. This report was verified electronically.
--- NOTE | 2017-06-25 11:34 | HHI.DS ---
Discharge Summary Admission Date Jun 24, 2017 at 06:13 Discharge Date: Jun 25, 2017 Admitting Diagnosis gerry; elevated troponin I; acute kidney injury (1) DKA (diabetic ketoacidoses) ICD Code: E13.10 - Other specified diabetes mellitus with ketoacidosis without coma Diagnosis: Principal Status: Acute (2) Elevated troponin I level ICD Code: R74.8 - Abnormal levels of other serum enzymes Diagnosis: Principal Status: Acute Procedures Nuclear medicine stress test - normal. Brief History This is a 52-year-old female with a history of type 1 diabetes who has an insulin pump at home. She presents for worsening fatigue over the past one week which is associated with nausea, vomiting, and nonbloody diarrhea. She states she has had these GI symptoms for at least 4-5 days and it just continually become worse. She also states that she thinks her insulin pump is not working very well because her blood sugars continue to rise despite her insulin pump. In the emergency department, she was found to have a severely elevated lactate at 8, blood glucose greater than thousand, positive blood and urine ketones. She denies chest pain, shortness breath, palpitations, shoulder pain, jaw pain. Her troponin is very slightly elevated. She does not have a history of coronary disease. The remainder of her review of systems is negative other than listed above. CBC/BMP: 06/25/17 0538 06/25/17 0538 Significant Findings Laboratory Tests Test 06/24/17 04:43 06/24/17 04:50 06/24/17 06:42 06/24/17 07:45 Venous Blood pH 7.12 (7.360-7.400) Venous Blood Partial Pressure CO2 18 mmHg (44-48) Venous Blood Partial Pressure O2 53 mmHg (35-40) Venous Blood HCO3 6 mmol/L (22-26) Venous Blood Base Excess -22.0 mmol/L (-2-2) White Blood Count 19.0 TH/MM3 (4.0-11.0) Red Blood Count 3.76 MIL/MM3 (4.00-5.30) Mean Corpuscular Volume 109.9 FL (80.0-100.0) Mean Corpuscular Hemoglobin Concent 31.0 % (32.0-36.0) Neutrophils (%) (Auto) 85.2 % (16.0-70.0) Lymphocytes (%) (Auto) 5.1 % (9.0-44.0) Monocytes (%) (Auto) 9.7 % (0.0-8.0) Neutrophils # (Auto) 16.2 TH/MM3 (1.8-7.7) Monocytes # (Auto) 1.8 TH/MM3 (0-0.9) Blood Urea Nitrogen 46 MG/DL (7-18) Creatinine 2.43 MG/DL (0.50-1.00) Random Glucose 1018 MG/DL (74-106) 744 MG/DL (74-106) 673 MG/DL (74-106) Calcium Level 8.4 MG/DL (8.5-10.1) Sodium Level 129 MEQ/L (136-145) Chloride Level 87 MEQ/L (98-107) Carbon Dioxide Level 6.9 MEQ/L (21.0-32.0) Anion Gap 35 MEQ/L (5-15) Estimat Glomerular Filtration Rate 21 ML/MIN (>89) Lactic Acid Level 8.0 mmol/L (0.4-2.0) Troponin I 0.51 NG/ML (0.02-0.05) 0.55 NG/ML (0.02-0.05) B-Hydroxybutyrate 13.00 MMOL/L (0.00-0.39) Test 06/24/17 13:31 06/25/17 05:38 Blood Urea Nitrogen 37 MG/DL (7-18) 20 MG/DL (7-18) Creatinine 1.47 MG/DL (0.50-1.00) Random Glucose 346 MG/DL (74-106) 152 MG/DL (74-106) Total Protein 5.6 GM/DL (6.4-8.2) 4.8 GM/DL (6.4-8.2) Calcium Level 7.4 MG/DL (8.5-10.1) 7.3 MG/DL (8.5-10.1) Phosphorus Level 1.6 MG/DL (2.5-4.9) 1.8 MG/DL (2.5-4.9) Chloride Level 109 MEQ/L (98-107) 113 MEQ/L (98-107) Estimat Glomerular Filtration Rate 37 ML/MIN (>89) 75 ML/MIN (>89) Protein Corrected Calcium 8.2 MG/DL (8.5-10.1) Troponin I 0.91 NG/ML (0.02-0.05) 0.63 NG/ML (0.02-0.05) White Blood Count 12.4 TH/MM3 (4.0-11.0) Red Blood Count 3.24 MIL/MM3 (4.00-5.30) Hemoglobin 10.9 GM/DL (11.6-15.3) Hematocrit 32.2 % (35.0-46.0) Platelet Count 123 TH/MM3 (150-450) Potassium Level 3.3 MEQ/L (3.5-5.1) Imaging Last Impressions Myocardial Perfusion Scan Nuc Med 06/25/17 0000 Signed Impressions: Service Date/Time: Sunday, June 25, 2017 09:24 - CONCLUSION: Normal examination. RISK CATEGORY: Low (<1%% Annual Mortality Rate) Christiano Barraza MD Chest X-Ray 06/24/17 0436 Signed Impressions: Service Date/Time: Saturday, June 24, 2017 04:54 - CONCLUSION: No acute disease. Christiano Crespo MD PE at Discharge GENERAL: 52-year-old female resting in bed in no acute distress SKIN: Warm and dry. HEAD: Atraumatic. Normocephalic. EYES: Pupils equal and round. No scleral icterus. No injection or drainage. ENT: No nasal bleeding or discharge. Mucous membranes pink and moist. NECK: Trachea midline. No JVD. CARDIOVASCULAR: Regular rate and rhythm. RESPIRATORY: No accessory muscle use. Clear to auscultation. Breath sounds equal bilaterally. GASTROINTESTINAL: Abdomen soft, non-tender, nondistended. Hepatic and splenic margins not palpable. MUSCULOSKELETAL: Extremities without clubbing, cyanosis, or edema. No obvious deformities. NEUROLOGICAL: Awake and alert. No obvious cranial nerve deficits. Motor grossly within normal limits. Five out of 5 muscle strength in the arms and legs. Normal speech. PSYCHIATRIC: Appropriate mood and affect; insight and judgment normal. Transfer Summary Neuro/Psych: Acute toxic metabolic encephalopathy secondary to ketosis resolved History of right hand trigger finger release Chronic Ultram use Acetaminophen 650 mg by mouth every 6 hours. Fever Resume tramadol/acetaminophen 37.5/25 one tablet every 4 hours. As needed Pain 4 through 7 Hydromorphone 0.5 mg IV every 4 hours as needed pain 8 through 10 Respiratory: Tobaccoism Nasal cannula to maintain saturations greater than equal to 92% Incentive spirometry while awake Chest x-ray revealed no acute cardiopulmonary findings Tobacco cessation self education booklet provided Start on guaifenesin 600 mg twice a day for mucolytic Cardiovascular: Elevated Troponin, Type II NSTEMI secondary to demand ischemia Essential hypertension Dyslipidemia - trend troponins. Peak at 0.91. Currently 0.63 - EKG on admission without st-t-wave changes - continue telemetry - Cardiology consult pending. 2-D echocardiogram ordered Resume atorvastatin 80 mg daily for dyslipidemia and lisinopril 2.5 mill grams daily for hypertension and aspirin 81 mg daily/home medications Lipid panel in a.m. Renal/: Acute Kidney injury resolved - secondary to severe dehydration and DKA. Creatinine currently at baseline - daily bmp -- Strict I/Os - Monitor urine output - Discontinue Dominguez catheter FEN/GI: Hypo-magnesium Hypophosphatemia Hypokalemia Gastroesophageal reflux disease 1800 ADA diet Receiving 2 g mag sulfate and 30 mmol potassium phosphorus. Recheck in a.m. Continue pantoprazole 40 mill grams by mouth daily/home medication Docusate sodium/senna 1 tablet twice a day for bowel regimen Heme/ID: Viral Gastroenteritis? Macrocytosis Leukocytosis no clinical history to suggest bacterial infection Monitor for signs and symptoms of infection does not meet transfusion triggers at this time Recheck CBC in a.m. Pertinent cultures Blood cultures 2 - 06/24 - no growth Influenza negative Endocrine: IDDM Diabetic Ketoacidosis -- dka protocol has been discontinued. - Started on insulin detemir 30 units at night. 20 units sliding scale insulin since transition overnight - We'll start on Novulog meeting protocol Accu-Cheks before meals/at bedtime and O300 - Patient to resume insulin pump once she returns home Hemoglobin A1c pending Prophylaxis: GI Prophylaxis - pantoprazole 40 mg daily DVT Prophylaxis - SCD/heparin subcutaneous Lines: Peripheral IV. Central line if indicated Nuclear medicine is normal. Will follow up with cardiology outpatient for risk modification with cardiology as an outpatient. Okay to discharge home. Hospital Course This is a 52-year-old female with a history of type 1 diabetes who has an insulin pump at home. She presents for worsening fatigue over the past one week which is associated with nausea, vomiting, and nonbloody diarrhea. She states she has had these GI symptoms for at least 4-5 days and it just continually become worse. She also states that she thinks her insulin pump is not working very well because her blood sugars continue to rise despite her insulin pump. In the emergency department, she was found to have a severely elevated lactate at 8, blood glucose greater than thousand, positive blood and urine ketones. She denies chest pain, shortness breath, palpitations, shoulder pain, jaw pain. Her troponin is very slightly elevated. She does not have a history of coronary disease. The remainder of her review of systems is negative other than listed above. 06/25: Afebrile. Tolerating diet. No bowel movement. Requesting to go home. No chest pain. Troponin peaked at 0.91. Cardiology to see today. Nuclear medicine stress was completed with recommendations normal. Less than 1% Will follow up. Outpatient Pt Condition on Discharge: Good Discharge Disposition: Discharge Home Discharge Instructions DIET: Follow Instructions for: Diabetic Diet Activities you can perform: Regular-No Restrictions Logan Samuels MD Jun 25, 2017 11:34
[2017-06-25] MEDS ORDERED: INSULIN ASPART SUPPLEMENTAL SCALE SQ SCH (12:00)
--- NOTE | 2017-06-25 14:23 | MB ---
cc: CHERYL MENDOZA M.D. DATE OF CONSULTATION 06/25/2017 REASON FOR CONSULTATION Abnormal cardiac enzymes. HISTORY OF PRESENT ILLNESS The patient is a 52-year-old white female with a history of diabetes, hyperlipidemia, who presented to the hospital mainly with complaints of flu-like symptoms for the past 3-4 days. She also has been experiencing some mild to moderate diffuse abdominal discomfort. She was found to be markedly hyperglycemic on admission. Cardiac enzymes were checked and found to be slightly abnormal. The patient denies any chest pain, shortness of breath, lightheadedness, syncope, near-syncope, palpitations, dyspepsia, paroxysmal nocturnal dyspnea, pedal edema. Since coming into hospital she feels "much, much better." She also denies any recent fevers. PAST MEDICAL HISTORY 1. Diabetes. 2. Hyperlipidemia. MEDICATIONS Her cardiac medications at home: 1. Lisinopril 2.5 mg q. day. 2. Aspirin 81 mg q. day. 3. Atorvastatin 80 mg q.h.s. ALLERGIES PENICILLIN. PAST SURGICAL HISTORY Right trigger finger release. FAMILY HISTORY The patient's mother sustained a myocardial infarction at age 55. Her father may have also sustained a myocardial infarction in his 50's. SOCIAL HISTORY The patient smokes about a half pack of cigarettes per day. She denies alcohol abuse. REVIEW OF SYSTEMS As in the history of present illness otherwise negative or noncontributory. She also denies headache, visual changes, unilateral weakness or numbness, abdominal pain, melena, bright red blood per rectum. PHYSICAL EXAMINATION VITAL SIGNS: On physical examination her blood pressure is 95/55 with a pulse of 83, respirations 20. GENERAL: In general she is a well-developed, well-nourished white female in no acute distress. HEENT/NECK: Jugular venous pressure is normal. Carotid pulses are 2+ bilaterally and without bruits. CHEST: Examination of the chest reveals clear lung gutierrez. CARDIAC: On cardiac examination she has a regular rhythm and rate without S3, S4, or murmur. ABDOMEN: On abdominal examination she has a soft, obese, nontender abdomen. Bowel sounds are present. There is no definite hepatosplenomegaly. EXTREMITIES: Examination of extremities reveals no clubbing, cyanosis or edema. LABORATORY Laboratory data includes potassium 3.3, BUN 20, creatinine 0.80 (2.43 on admission), troponin 0.91, WBC 12.4, hemoglobin 10.9, platelets 123. EKG EKG shows normal sinus rhythm, possible septal infarct age undetermined. IMAGING Chest x-ray shows no acute disease. IMPRESSION Slightly abnormal troponin levels in this 52-year-old white female with a history of diabetes, hyperlipidemia, admitted with marked hyperglycemia. She has had no definite angina-like symptoms recently. EKG shows no acute ST-segment or T-wave changes. The slight elevations in troponin levels may be due to the renal insufficiency noted on admission, probably due to dehydration. On the other hand, she has numerous risk factors for coronary artery disease. Echocardiogram is pending. RECOMMENDATIONS Check a nuclear stress test this morning. If her nuclear stress test is negative for ischemia, she is cleared for discharge. Cheryl Mendoza MD GHJessica/DIANNE /8:32 AM /9:04 AM MTDLul
[2017-06-25 18:01] LABS: HEMOGLOBIN A1C 7.5 % (4.3-6.0)
[2017-06-25] MEDS ORDERED: ATORVASTATIN 80 MG TAB PO SCH (21:00)
--- NOTE | 2017-06-26 11:10 | EKG ---
Date Performed: 06/25/2017 Time Performed: 11:03:14 PTAGE: 52 years EKG: Sinus rhythm ANTERIOR MYOCARDIAL INFARCTION , PROBABLY RECENT ACUTE TN PREVIOUS TRACING : 06/24/2017 04.34 DOCTOR: Carlos Wiley Interpretating Date/Time 06/26/2017 11:10:26
== END 2017-06-25 12:33 | disposition home or self-care (01) | DRG 637 ==
LOC: NEPC 04:27 → NEDA 06:13 → N03B 09:14
PROVIDERS: ADMIT Internal Medicine; ATTEND Internal Medicine
DX: E10.10 Type 1 diabetes mellitus with ketoacidosis without coma (principal); G92 Toxic encephalopathy; N17.9 Acute kidney failure, unspecified; E87.1 Hypo-osmolality and hyponatremia; E87.70 Fluid overload, unspecified; A08.4 Viral intestinal infection, unspecified; E86.0 Dehydration; I10 Essential (primary) hypertension; I25.10 Atherosclerotic heart disease of native coronary artery without angina pectoris; E87.5 Hyperkalemia; E78.5 Hyperlipidemia, unspecified; E83.42 Hypomagnesemia; E83.39 Other disorders of phosphorus metabolism; E87.6 Hypokalemia; K21.9 Gastro-esophageal reflux disease without esophagitis; F17.210 Nicotine dependence, cigarettes, uncomplicated; Z88.0 Allergy status to penicillin; Z96.41 Presence of insulin pump (external) (internal); Z79.4 Long term (current) use of insulin
CPT/HCPCS: 71045; 78452; 80048; 80053; 82010; 82550; 82805; 82947; 82948; 83036; 83605; 83690; 83735; 84100; 84155; 84484; 85025; 85027; 86403; 87040; 87186; 87205; 87804; 93005; 93017; 96361; 96365; 96374; 96375; A9502; J1644; J1815; J1817; J2405; J2785; J3475; J7030; J7040; J7042; J7050